=== PATIENT | male | born 2005 | race Caucasian/White ===

== ENCOUNTER 2024-12-17 18:23 | Emergency (ER) | payer MEDICAID ==
[~2024-12-17] VITALS: Ht 190.5 cm; Wt 79.4 kg
[2024-12-17] MEDS: cephalexin 250mg capsule PO ONE (20:30)
[2024-12-17] MEDS: TETanus/Pertussis (Acell)/Diphther VAC/PF (Tdap-Adult) 0.5ml syringe IMVAC ONE (20:32)
[2024-12-17] MEDS ORDERED: mag hydrox/Alum hydrox/simeth 30ml oral suspension PO PRN (21:00)
[2024-12-17] MEDS ORDERED: HYDROcodone/acetaminophen 5mg/325mg tablet PO PRN (21:00)
[2024-12-17] MEDS ORDERED: magnesium sulf-water 2g/50mL 50 ML IV PRN (21:00)
[2024-12-17] MEDS ORDERED: magnesium sulf-water 4G/100mL 100 ML IV PRN (21:00)
[2024-12-17] MEDS ORDERED: acetaminophen 325mg tablet PO PRN (21:00)
[2024-12-17] MEDS ORDERED: morphine 2 MG/ML inj. syringe IV PRN (21:00)
[2024-12-17] MEDS ORDERED: magnesium Cl slow-release 64mg tablet PO PRN (21:00)
[2024-12-17] MEDS ORDERED: magnesium hydroxide 30ml (MOM) UD suspension PO PRN (21:00)
[2024-12-17] MEDS ORDERED: potassium Cl 20 mEq SR tablet PO PRN ×2 (21:00)
[2024-12-17] MEDS ORDERED: potassium Cl 40MEQ/1/2NS 520ml 520 ML IV PRN (21:00)
[2024-12-17] MEDS ORDERED: ondansetron/PF 4mg/2ml inj IV PRN (21:00)
[2024-12-17] MEDS ORDERED: CEPH250T PO (21:36)
[2024-12-17 22:19] VITALS: BP 145/89; PULSE 94; RESP 18; TEMP 98.6; O2SAT 99
[2024-12-18] MEDS ORDERED: docusate sod 100mg capsule PO SCH (08:00)
[2024-12-18] MEDS ORDERED: K and/or MAG REPLACEMENT MC SCH (08:00)
== END 2024-12-17 22:29 | disposition home or self-care (01) ==
LOC: ER 18:24 → ED HOLD 21:01 → UNDOADMIN 21:01 → UNDODISIN 22:00
DX: S20.359A Superficial foreign body of unspecified front wall of thorax, initial encounter (principal); X58.XXXA Exposure to other specified factors, initial encounter; Y93.89 Activity, other specified; Y92.89 Other specified places as the place of occurrence of the external cause; Y99.8 Other external cause status
CPT/HCPCS: 71250; 83735; 84132; 90471; 90715; 99285; G0378